=== PATIENT | male | born 1975 | race American Indian/Alaskan Native ===

== ENCOUNTER 2021-01-31 16:38 | Emergency (ER) | payer SELFPAY ==
[2021-01-31 17:14] VITALS: BP 118/86
[2021-01-31] MEDS ORDERED: PANTOPRAZOLE 40 MG TAB PO ONE (18:24)
[2021-01-31] MEDS ORDERED: ACETAMINOPHEN 325 MG TAB PO ONE (18:24)
[2021-01-31] MEDS ORDERED: SUCRALFATE 1 GM/10 ML ORAL LIQD PO ONE (18:24)
--- NOTE | 2021-01-31 18:25 | Emergency Department Report ---
ED General Adult HPI - General Chief complaint: Arrhythmia/Palpitations Stated complaint: PALPITATIONS PUI?: No Time Seen by Provider: 01/31/21 18:13 Source: patient, EMS ( EMS documentation not available at time of chart dictation ) Mode of arrival: Stretcher Limitations: No Limitations - History of Present Illness Initial comments: The patient is a 45-year-old gentleman. He is not known to myself previously. He denies significant past medical history, with the exception of scoliosis. He presents to the ER today with 3 weeks complaint intermittent chest racing, tightness, palpitations. The patient denies headache, neck pain, vomiting, diaphoresis, exertional shortness of breath, leg pain, leg swelling, immobilizations, travel, surgery, DVT/PE risk factors. He has presented to multiple emergency rooms, including [place] and [place], within the past few weeks, was told that he had "reflux", and started on a proton pump inhibitor. To the best of his recollection, he has not had an endoscopic evaluation. He reports that he is not really followed up with an outpatient primary care doctor, and endorses an adequate water intake, and also reports that he does not really consume much in the way of fiber, vegetables and lean protein. Denies personal/family history of ACS DVT, PE, and he reports no illicit drug use. -: Gradual, week(s) Location: chest Radiation: non-radiation Consistency: intermittent Improves with: none Worsens with: none - Related Data Allergies Allergy/AdvReac Type Severity Reaction Status Date / Time No Known Allergies Allergy Verified 01/31/21 17:13 ED Review of Systems ROS: Stated complaint: PALPITATIONS Other details as noted in HPI Constitutional: denies: fever, malaise, weakness Eyes: denies: eye discharge ENT: denies: congestion Respiratory: denies: shortness of breath Cardiovascular: palpitations, other (Chest pressure) Gastrointestinal: denies: vomiting, hematemesis, melena, hematochezia Musculoskeletal: denies: back pain Neurological: denies: weakness ED Physical Exam - General Limitations: No Limitations General appearance: alert, in no apparent distress - Head Head exam: Present: atraumatic, normocephalic - Eye Eye exam: Present: normal appearance, EOMI. Absent: nystagmus - ENT ENT exam: Present: normal exam, normal orophraynx, mucous membranes moist, normal external ear exam - Neck Neck exam: Present: normal inspection, full ROM. Absent: tenderness, meningismus - Respiratory Respiratory exam: Present: normal lung sounds bilaterally. Absent: respiratory distress, wheezes, rales, rhonchi, stridor, decreased breath sounds - Cardiovascular Cardiovascular Exam: Present: regular rate, normal rhythm, normal heart sounds. Absent: bradycardia, tachycardia, irregular rhythm, systolic murmur, diastolic murmur, rubs, gallop - GI/Abdominal GI/Abdominal exam: Present: soft. Absent: distended, tenderness, guarding, rebound, rigid, pulsatile mass - Rectal Rectal exam: Present: deferred - Extremities Exam Extremities exam: Present: normal inspection, full ROM, other (2+ pulses noted in the bilateral upper and lower extremities. There is no palpable cord. negative Homans sign. Muscular compartments are soft. The pelvis is stable.). Absent: pedal edema, calf tenderness - Back Exam Back exam: Present: normal inspection, full ROM. Absent: tenderness, CVA tenderness (R), CVA tenderness (L), paraspinal tenderness, vertebral tenderness - Neurological Exam Neurological exam: Present: alert, oriented X3, normal gait, other (No facial droop. Tongue midline. Extraocular movements intact bilaterally. Facial sensation intact to light touch in V1, V2, V3 distribution bilaterally. 5 and a 5 strength in 4 extremities. Sensation intact to light touch in 4 extremities.). Absent: motor sensory deficit - Psychiatric Psychiatric exam: Present: normal affect, normal mood - Skin Skin exam: Present: warm, dry, intact, normal color. Absent: rash ED Course Vital Signs 01/31/21 17:12 Temperature 98.9 F Pulse Rate 70 Respiratory 16 Rate Blood Pressure 118/86 [Right] O2 Sat by Pulse 99 Oximetry - Reevaluation(s) Reevaluation #1: 01/31/21 19:27 Differential diagnosis, including the not limited to: GERD, gastritis, hiatal hernia, pneumonia, costochondritis, reflux, electrolyte derangement, thyroid rachid angement, coronary artery disease Assessment and plan: 45-year-old gentleman, who is not currently tachycardic, tachypneic or hypoxic, who denies DVT and pulmonary embolism risk factors, who is low risk by Wells criteria for pulmonary embolism, PERC negative , EKG nonspecific troponin negative x 1, symptoms present for 3 weeks Patient has equal pulses in the upper and lower extremities, no pulsatile abdominal mass, and an unremarkable x-ray of the chest, therefore, aortic disease is very unlikely. Patient at low risk for major adverse cardiac event as per heart score. Extensive discussion had with patient regarding need for diet lifestyle modifications, he will need to follow-up with an outpatient primary care doctor, cephalometric tracer, and at some point time, outpatient GI. Patient observed in the ER for hours without clinical decompensation. He is suitable to follow-up with an outpatient physician 01/31/21 19:28 ED Medical Decision Making - Lab Data Result diagrams: 01/31/21 18:43 01/31/21 18:43 Vital Signs 01/31/21 17:12 Temperature 98.9 F Pulse Rate 70 Respiratory 16 Rate Blood Pressure 118/86 [Right] O2 Sat by Pulse 99 Oximetry Lab Results 01/31/21 Range/Units 18:43 WBC 10.9 (4.5-11.0) K/mm3 RBC 4.55 (3.65-5.03) M/mm3 Hgb 13.1 (11.8-15.2) gm/dl Hct 42.6 (35.5-45.6) % MCV 94 (84-94) fl MCH 29 (28-32) pg MCHC 31 L (32-34) % RDW 12.1 L (13.2-15.2) % Plt Count 293 (140-440) K/mm3 Vital Signs 01/31/21 17:12 Temperature 98.9 F Pulse Rate 70 Respiratory 16 Rate Blood Pressure 118/86 [Right] O2 Sat by Pulse 99 Oximetry Lab Results 01/31/21 01/31/21 01/31/21 Range/Units 18:43 18:43 18:43 WBC 10.9 (4.5-11.0) K/mm3 RBC 4.55 (3.65-5.03) M/mm3 Hgb 13.1 (11.8-15.2) gm/dl Hct 42.6 (35.5-45.6) % MCV 94 (84-94) fl MCH 29 (28-32) pg MCHC 31 L (32-34) % RDW 12.1 L (13.2-15.2) % Plt Count 293 (140-440) K/mm3 Sodium 139 (137-145) mmol/L Potassium 4.3 (3.6-5.0) mmol/L Chloride 100.3 (98-107) mmol/L Carbon Dioxide 24 (22-30) mmol/L Anion Gap 19 mmol/L BUN 11 (9-20) mg/dL Creatinine 1.0 (0.8-1.3) mg/dL Estimated GFR > 60 ml/min BUN/Creatinine Ratio 11 % Glucose 77 (75-100) mg/dL Calcium 9.3 (8.4-10.2) mg/dL Magnesium (1.7-2.3) mg/dL Total Bilirubin 1.20 (0.1-1.2) mg/dL AST 21 (5-40) units/L ALT 8 (7-56) units/L Alkaline Phosphatase 128 (35-129) units/L Troponin T < 0.010 (0.00-0.029) ng/mL Total Protein 7.9 (6.3-8.2) g/dL Albumin 4.5 (3.9-5) g/dL Albumin/Globulin Ratio 1.3 % TSH 1.000 (0.270-4.200) mlU/mL 01/31/21 Range/Units 18:43 WBC (4.5-11.0) K/mm3 RBC (3.65-5.03) M/mm3 Hgb (11.8-15.2) gm/dl Hct (35.5-45.6) % MCV (84-94) fl MCH (28-32) pg MCHC (32-34) % RDW (13.2-15.2) % Plt Count (140-440) K/mm3 Sodium (137-145) mmol/L Potassium (3.6-5.0) mmol/L Chloride (98-107) mmol/L Carbon Dioxide (22-30) mmol/L Anion Gap mmol/L BUN (9-20) mg/dL Creatinine (0.8-1.3) mg/dL Estimated GFR ml/min BUN/Creatinine Ratio % Glucose (75-100) mg/dL Calcium (8.4-10.2) mg/dL Magnesium 2.10 (1.7-2.3) mg/dL Total Bilirubin (0.1-1.2) mg/dL AST (5-40) units/L ALT (7-56) units/L Alkaline Phosphatase (35-129) units/L Troponin T (0.00-0.029) ng/mL Total Protein (6.3-8.2) g/dL Albumin (3.9-5) g/dL Albumin/Globulin Ratio % TSH (0.270-4.200) mlU/mL - EKG Data -: EKG Interpreted by Me EKG shows normal: sinus rhythm - EKG Data When compared to previous EKG there are: previous EKG unavailable 01/31/21 19:26 EKG interpreted by myself at 18: 22 Sinus rhythm, rate 61 bpm. Normal axis, normal P wave axis, left ventricular hypertrophy, poor R wave progression. Abnormal EKG, not a STEMI. There is no prior for comparison - Radiology Data Radiology results: pending, report reviewed, image reviewed interpreted by me: 1 view x-ray of the chest, interpreted by myself, clear lungs, no pneumothorax, normal cardiomediastinal silhouette noted, surgical hardware in place CHEST 2 VIEWS INDICATION: Dysrhythmia. COMPARISON: none FINDINGS: Support devices: None. Heart: Within normal limits. Lungs/pleura: No acute air space or interstitial disease. No pneumothorax. Additional findings: Scoliosis secured by [employer]. IMPRESSION: No acute findings. Signer Name: Joao Brunson Jr, MD Signed: 01/31/2021 6:43 PM Workstation Name: [id number] Critical care attestation.: If time is entered above; I have spent that time in minutes in the direct care of this critically ill patient, excluding procedure time. ED Disposition Clinical Impression: Chest discomfort, History of palpitations Disposition: HOME / SELF CARE / HOMELESS Is pt being admited?: No Does the pt Need Aspirin: No Condition: Good Instructions: Heartburn, Nonspecific Chest Pain, Pediatric Additional Instructions: Patient may take [id number] Tylenol as needed for physical pain, also alternate with [id number] Pepcid, and or Protonix or pantoprazole. Avoid consumption of Motrin, ibuprofen, Naprosyn, Aleve, alcohol, tobacco, smoke products, heavy and spicy foods. The patient should follow-up with a primary care doctor or cephalometric tracer within the next 3 to 5 days for complains of chest tightness and palpitations. [facility] is a local cardiology practice. Dr. Marci Jacobsen is a local primary care doctor. The patient should drink at least 6 cups of water per day indefinitely, consume plenty of fiber, vegetables, lean protein, and green vegetables. The patient should avoid consumption of processed foods, and simple carbohydrates. If these interventions are unsuccessful and the patient is still experiencing upper abdominal pain, he may follow-up with an outpatient contact center assistant at his convenience, within the next few weeks to months. [facility] is a local GI practice. Please return to the emergency room right away with new pain, worsened pain, migration of pain, projectile vomiting, change in mental status, confusion, inability to tolerate liquid feeds, new, worsened or different symptoms not present on the initial emergency room evaluation Referrals: PRIMARY CAREMD [Primary Care Provider] - 3-5 Days JOVANNI JACOBSEN MD [Staff Physician] - 3-5 Days [facility] [Provider Group] - 3-5 Days [facility] [Provider Group] - 3-5 Days Forms: Work/School Release Form(ED) Heart Score - HEART Score History: Slightly suspicious EKG: Non-specific Age: 45-65 Risk factors: No known risk factors Troponin: < normal limit HEART Score: 2 - EKG Read Time Time EKG Completed: 18:22 EKG Read Time: 18:22 - Critical Actions Critical Actions: 0-3 pts:0.9-1.7%risk of adverse cardiac event.Candidate for discharge
[2021-01-31 19:16] LABS: Mean Corpuscular HGB Conc 31 % (32-34); Mean Corpuscular Volume 94 fl (84-94); Platelet Count 293 K/mm3 (140-440); Red Blood Count 4.55 M/mm3 (3.65-5.03); Red Cell Distribution Width 12.1 % (13.2-15.2)
[2021-01-31 19:17] LABS: Hematocrit 42.6 % (35.5-45.6); Hemoglobin 13.1 gm/dl (11.8-15.2)
[2021-01-31 19:38] LABS: Alanine Aminotransferase 8 units/L (7-56); Albumin 4.5 g/dL (3.9-5); BUN/Creatinine Ratio 11; Blood Urea Nitrogen 11 mg/dL (9-20); Calcium 9.3 mg/dL (8.4-10.2); Hemolysis Index 46
--- NOTE | 2021-01-31 19:48 | XRay Report ---
CHEST 2 VIEWS INDICATION: Dysrhythmia. COMPARISON: none FINDINGS: Support devices: None. Heart: Within normal limits. Lungs/pleura: No acute air space or interstitial disease. No pneumothorax. Additional findings: Scoliosis secured by [employer]. IMPRESSION: No acute findings. Signer Name: Joao Brunson Jr, MD Signed: 01/31/2021 7:43 PM Workstation Name: [id number]
--- NOTE | 2021-02-02 10:24 | Electrocardiograph Report ---
[facility] Test Date: 2021-01-31 Test Time: 18:22:47 Pat Name: ANTOINE HALLMAN Department: Room: Gender: M Peer Tutor: SATHISH : 1975 Requested By: JU MCCOY Order Number: [id number] Reading MD: Billy Reid Measurements Intervals [place] Rate: 61 P: 63 IA: 150 QRS: 75 QRSD: 98 T: 74 QT: 415 QTc: 419 Interpretive Statements Sinus arrhythmia Poor R wave progression No previous ECG available for comparison Electronically Signed On 02-02-2021 10:23:35 EST by Billy Reid
== END 2021-01-31 20:25 | disposition home or self-care (01) ==
LOC: ED 16:38
DX: R07.89 Other chest pain (principal); R00.2 Palpitations
CPT/HCPCS: 36415; 71046; 80053; 83735; 84443; 84484; 85027; 93005; 99284